=== PATIENT | female | born 1990 | race Hispanic/Latino ===

== ENCOUNTER 2017-06-10 13:16 | Inpatient (IN) | payer MEDICAID ==
[2017-06-10] MEDS ORDERED: Fluarix Quad 2017-2018(36 MOS+) IM ONE (14:39)
--- NOTE | 2017-06-10 14:40 | History and Physical Report ---
<OSIRIS ROMERO - Last Filed: 06/10/17 17:05> History of Present Illness Date of examination: 06/10/17 Date of admission: 06/10/17 13:16 History of present illness: EDC Confirmation: 06/25/2017 Gestational Age: 19 4/7 weeks Past History : 2 Parity: 1 Premature Births: 0 Mult. Births: 0 Prev : 0 Prev. attempt? 0 Aborta: 0 Elect. Ab: 0 Spont. Ab: 0 Ectopics: Term births: 1 # 1 labor: no Hours of labor: 9 Past Medical History: ADD Multiple sclerosus Seizure disorder (2013) Neurologic Disorder Past Surgical History: Tonsillectomy Family History Summary: Other family member - Has Family History of Hypertension - MS - Entered On: 02/02 Other family member - Has Family History of Hyperlipidemia - MS - Entered On: General Comments - FH: Family History Breast Cancer:MGM No Family History of Colon Cancer No Family History of Ovarvian Cancer No Family History of DVT/PE on OCP Social History: Patient is single/ engaged no etoh, no illicit drug use, no tobacco use Risk Factors: Smoked Tobacco Use: Never smoker Drug use: no Alcohol use: yes Drinks per day: social Dietary Counseling: pn yes Past Medical History Neurologic/Epilepsy/Migraines: yes 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 Abnormal PAP: positive WINSOME Exposure: negative Infertility: negative Uterine Anomaly: negative Uterine Surgery (not C/S): negative Other Gynecologic Problems: negative Social Hx: Patient is single/ engaged no etoh, no illicit drug use, no tobacco use Infection History Hx of STD: none Genetic History Congenital Heart Defect: Mom: no Dad: no Josse Disease: Mom: no Dad: no Thalassemia Mom: no Dad: no Neural Tube Defect Mom: no Dad: no Down's Syndrome Mom: no Dad: no Marcelo-Sachs Mom: no Dad: no Sickle Cell Disease/Trait Mom: no Dad: no Hemophilia Mom: no Dad: no Muscular Dystrophy Mom: no Dad: no Cystic Fibrosis Mom: no Dad: no [place] Chorea Mom: no Dad: no Mental Retardation Mom: no Dad: no Fragile X Mom: no Dad: no Other Genetic/Chromosomal Disorder Mom: no Dad: no Child w/other defect Mom: no Dad: no Enviromental Exposures Xray Exposure: no Medication, drug, or alcohol use since LMP: no Chemical/Other Exposure: no Exposure to Cat Liter: no Hx of Parvovirus (Fifth Disease): no Current Allergies (reviewed today): * SULFA (Critical) Laboratory Results Routine Urinalysis Leukocytes: negative Nitrite: negative Urobilinogen: negative Protein: negative pH: 6.0 Blood: negative Spec. [place]: 1.015 Ketone: negative Bilirubin: negative Glucose: negative Urine HCG: positive Review of Systems General Complains of fatigue and weakness. Denies fever, chills, sweats, anorexia, malaise, weight loss and sleep disorder. Complains of pelvic pain. Denies vaginal discharge, incontinence, dysuria, hematuria, urinary frequency, amenorrhea, menorrhagia, abnormal vaginal bleeding, genital sores, decreased libido, painful periods, painful sex, urinary urgency, hot flashes, vaginal dryness, vaginal itching and vaginal odor. CV Denies chest pains, palpitations, syncope, dyspnea on exertion, orthopnea, PND and peripheral edema. Resp Denies cough, dyspnea at rest, excessive sputum, hemoptysis, wheezing and pleurisy. GI Denies nausea, vomiting, diarrhea, constipation, change in bowel habits, abdominal pain, melena, hematochezia, jaundice, gas/bloating, indigestion/ heartburn, dysphagia and odynophagia. Breast Complains of breast pain. Denies left breast lump, right breast lump, nipple discharge, bloody discharge from nipple, abnormal mammogram and breast enlargement. Neuro Complains of paresthesias and difficulty walking. Psych Denies depression, anxiety, irritability and mood swings. PHYSICAL EXAM HEENT: normocephalic, no lesions or deformities Neck/Thyroid: supple, thyroid normal Skin no significant abnormal lesions or rashes Chest: respiratory effort normal, clear to auscultation Breasts: skin/areolae normal, no masses, no nipple discharge, no erythema/warmth /tenderness, and axillae normal. 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 Vulva/Vagina: No lesions, normal BUS, normal rugae Cervix: No lesions; no cervical motion tenderness Uterus: enlarged palpated at umbilicus Adnexae: Unable to palpate due to uterine size Rectovaginal: exam defered Past History Past Medical History: neurologic (MS) - Obstetrical History Expected Date of Delivery: 06/25/17 Actual Gestation: 37 Week(s) 6 Day(s) : 2 Para: 1 Hx # Term Pregnancies: 1 Number of Living Children: 1 Medications and Allergies Allergies Allergy/AdvReac Type Severity Reaction Status Date / Time Sulfa (Sulfonamide Allergy Hives Verified 06/10/17 14:40 Antibiotics) Home Medications Medication Instructions Recorded Confirmed Last Taken Type No Known Home Medications [No 06/10/17 06/10/17 Unknown History Reported Home Medications] Pnv No.118/Iron Fumarate/FA 1 each PO QDAY 06/10/17 06/10/17 1 Day Ago History [ 19 Chewable] - Vital Signs Vital signs: Vital Signs Pulse BP 80 124/92 06/10/17 13:49 06/10/17 13:49 Temp Pulse Resp BP Pulse Ox 71 124/92 100 06/10/17 14:30 06/10/17 13:49 06/10/17 14:30 - Physical Exam Breasts: Positive: deferred Cardiovascular: Regular rate, Normal S1, Normal S2 Lungs: Positive: Normal air movement Abdomen: Positive: normal appearance, soft, normal bowel sounds. Negative: distention, tenderness Genitourinary (Female): Positive: normal perenium Vulva: both: normal Vagina: Positive: normal moisture. Negative: discharge Cervix: Negative: lesion, discharge Uterus: Positive: normal size, normal contour Adnexa: both: normal Anus/Rectum: Positive: normal perianal skin, heme negative. Negative: rectal mass, hemorrhoids Extremities: Positive: normal Deep Tendon Reflex Grade: Normal +2 - Obstetrical FHR: category 1 Uterine Contraction Monitor Mode: External Cervical Dilatation: 5.5 (per CNM in office) Cervical Effacement Percentage: 70 station: -2 Uterine Contraction Pattern: Regular Uterine Tone Measurement Phase: Resting Uterine Contraction Intensity: Moderate Results Result Diagrams: 06/10/17 15:00 All other labs normal. Strep Gp B KEYSHA Negative HBsAg Screen Negative Negative *1 Rubella Antibodies, IgG 2.88 index Immune >0.99 *2 Non-immune <0.90 Equivocal 0.90 - 0.99 Immune >0.99 ABO Grouping O *3 Rh Factor Positive *4 Please note: Prior records for this patient's ABO / Rh type are not available for additional verification. Antibody Screen Negative Negative *5 RPR Non Reactive Non Reactive *6 WBC 4.7 x10E3/uL 3.4-10.8 *7 RBC 3.91 x10E6/uL 3.77-5.28 *8 Hemoglobin 12.7 g/dL 11.1-15.9 *9 Hematocrit 37.1 % 34.0-46.6 *10 MCV 95 fL 79-97 *11 MCH 32.5 pg 26.6-33.0 *12 MCHC 34.2 g/dL 31.5-35.7 *13 RDW 13.1 % 12.3-15.4 *14 Platelets 174 x10E3/uL 150-379 *15 Neutrophils 72 % *16 Lymphs 21 % *17 Monocytes 6 % *18 Eos 1 % *19 Basos 0 % *20 ! Immature Cells <No Reported Value> *21 Neutrophils (Absolute) 3.3 x10E3/uL 1.4-7.0 *22 Lymphs (Absolute) 1.0 x10E3/uL 0.7-3.1 *23 Monocytes(Absolute) 0.3 x10E3/uL 0.1-0.9 *24 Eos (Absolute) 0.0 x10E3/uL 0.0-0.4 *25 Baso (Absolute) 0.0 x10E3/uL 0.0-0.2 *26 ! Immature Granulocytes 0 % *27 ! Immature Grans (Abs) 0.0 x10E3/uL 0.0-0.1 *28 ! NRBC <No Reported Value> *29 Hematology Comments: <No Reported Value> *30 Tests: (2) Cystic Fibrosis Profile (388397) ! CF, Screen Comment: *31 RESULTS: Negative for 32 mutations analyzed Tests: (3) HB Solu + Rflx Fra (886635) Hemoglobin (Hgb) Solubility Negative Negative *33 Tests: (4) Panel 313410 ([id number]) HIV Screen 4th Generation wRfx Non Reactive Non Reactive *34 Tests: (5) HCV Ab w/Rflx to Verification (813434) ! HCV Ab <0.1 s/co ratio 0.0-0.9 *35 Tests: (6) Comment: (449443) ! Comment: SPRCS *36 Non reactive HCV antibody screen is consistent with no HCV infection, unless recent infection is suspected or other evidence exists to indicate HCV infection. Assessment and Plan 26yo @ 37w6d sent from OB office in active labor. Pt's significant hx of MS and seizure disorder. Pt has brought her RX for her steroids to be given post delivery. GBS negative. Order in EMR. aware of admission. <ASA SOLITARIO D - Last Filed: 06/10/17 19:03> History of Present Illness Date of admission: 06/10/17 13:16 Medications and Allergies Active Meds: Active Medications Fentanyl (Sublimaze) 100 mcg IV Q2H PRN PRN Reason: Labor Pain Last Admin: 06/10/17 18:01 Dose: 100 mcg Lactated Ringer's (Lactated Ringers) 1,000 mls @ 125 mls/hr IV DIRECT TERESO Last Admin: 06/10/17 17:32 Dose: 125 mls/hr Oxytocin/Sodium Chloride (Pitocin/Ns 20 Unit/1000ml Drip) 20 units in 1,000 mls @ 125 mls/hr IV DIRECT TERESO Oxytocin/Sodium Chloride (Pitocin/Ns 30 Unit/500ml) 30 units in 500 mls @ 4 mls /hr IV TITR TERESO PRN Reason: Protocol Last Admin: 06/10/17 17:33 Dose: 4 ml/hr, 4 mls/hr Immune Globulin 30 gm/ (Miscellaneous Information) 301 mls @ 0 mls/hr IV Q24HR@ 2100 TERESO Stop: 06/11/17 21:01 Mineral Oil (Mineral Oil) 30 ml PO QHS PRN PRN Reason: Constipation Ondansetron HCl (Zofran) 4 mg IV Q8H PRN PRN Reason: Nausea And Vomiting - Vital Signs Vital signs: Vital Signs Pulse BP 80 124/92 06/10/17 13:49 06/10/17 13:49 Temp Pulse Resp BP Pulse Ox 98.0 F 78 14 128/93 98 06/10/17 14:42 06/10/17 18:35 06/10/17 14:42 06/10/17 16:43 06/10/17 18:35 Results Result Diagrams: 06/10/17 15:00 Abnormal lab results 06/10/17 Range/Units 15:00 MCHC 36 H (30-34) % RDW 12.5 L (13.2-15.2) % Plt Count 120 L (140-440) K/mm3 All other labs normal.
[2017-06-10] MEDS ORDERED: ZOFRAN IV PRN ×2 (14:41→21:32)
[2017-06-10] MEDS ORDERED: XYLOCAINE 2% INFILTRATI ONE (14:41)
[2017-06-10] MEDS ORDERED: ePHEDrine SULFATE IV PRN (14:41)
[2017-06-10] MEDS ORDERED: MINERAL OIL PO PRN (14:41)
[2017-06-10] MEDS ORDERED: BRETHINE SUB-Q PRN (14:41)
[2017-06-10] MEDS ORDERED: SUBLIMAZE IV PRN (14:41)
[2017-06-10] MEDS ORDERED: PITOCin/NS 20 UNIT/1000ML DRIP 20 UNITS/1,000 ML BAG IV SCH ×2 (15:00→21:32)
[2017-06-10] MEDS ORDERED: LACTATED RINGERS 1,000 ML IV SCH (15:00)
[2017-06-10] MEDS ORDERED: PITOCin/NS 30 UNIT/500ML 30 UNITS/500 ML BAG IV SCH (15:00)
[2017-06-10 15:38] LABS: Hematocrit 37.4 % (30.3-42.9); Hemoglobin 13.4 gm/dl (10.1-14.3); Mean Corpuscular HGB Conc 36 % (30-34); Mean Corpuscular Hemoglobin 32 pg (28-32); Mean Corpuscular Volume 90 fl (79-97); Platelet Count 120 K/mm3 (140-440); Red Blood Count 4.15 M/mm3 (3.65-5.03); Red Cell Distribution Width 12.5 % (13.2-15.2); White Blood Count 8.2 K/mm3 (4.5-11.0)
--- NOTE | 2017-06-10 19:28 | Procedure Note ---
OB Delivery Note - Delivery Date of Delivery: 06/10/17 Surgeon: ASA SOLITARIO Estimated blood loss: 200cc - Vaginal Delivery presentation: vertex Delivery position: OA Intrapartum events: none Delivery augmentation: rupture of membranes, pitocin Delivery monitor: external FHT, external uterine Route of delivery: Delivery placenta: spontaneous Episiotomy: none Delivery laceration: none Anesthesia: intravenous - Infant A at 1 minute: 9 at 5 minutes: 9 Infant Gender: Male
[2017-06-10] MEDS ORDERED: TYLENOL PO SCH (21:00)
[2017-06-10] MEDS ORDERED: VIAFLEX EMPTY CONTAINER IV SCH (21:00)
[2017-06-10] MEDS ORDERED: PRIVIGEN IV SCH (21:00)
[2017-06-10] MEDS ORDERED: PHENERGAN PR PRN (21:32)
[2017-06-10] MEDS ORDERED: CYTOTEC PR PRN (21:32)
[2017-06-10] MEDS ORDERED: TORADOL IV PRN (21:32)
[2017-06-10] MEDS ORDERED: TUCKS PAD TP PRN (21:32)
[2017-06-10] MEDS ORDERED: METHERGINE IM PRN (21:32)
[2017-06-10] MEDS ORDERED: MILK OF MAGNESIA PO PRN (21:32)
[2017-06-10] MEDS ORDERED: SODIUM CHLORIDE FLUSH SYRINGE 10 ML IV PRN (21:32)
[2017-06-10] MEDS ORDERED: BENADRYL PO PRN (21:32)
[2017-06-10] MEDS ORDERED: LANSINOH TP PRN (21:32)
[2017-06-10] MEDS ORDERED: HEMABATE IM PRN (21:32)
[2017-06-10] MEDS ORDERED: PHENERGAN PO PRN (21:32)
[2017-06-10] MEDS ORDERED: TYLENOL PO PRN (21:32)
[2017-06-10] MEDS ORDERED: DULCOLAX PR PRN (21:32)
[2017-06-10] MEDS: TYLENOL PO SCH (22:05)
[2017-06-10] MEDS: MOTRIN PO SCH (22:06)
[2017-06-10] MEDS: BENADRYL PO SCH (22:06)
[2017-06-10] MEDS: PRIVIGEN IV SCH (22:47)
[2017-06-10] MEDS: VIAFLEX EMPTY CONTAINER IV SCH (22:47)
[2017-06-11] MEDS: MOTRIN PO SCH ×3 (05:11→17:55)
--- NOTE | 2017-06-11 09:21 | Progress Note ---
Assessment and Plan patient doing well, no complaints this morning. VSSAF, H&H not yet resulted. patient denies s/s anemia during ambulation. Second dose of privigen due this evening. Plan to continue current pathway and d/c home tomorrow. - Patient Problems (1) (normal spontaneous vaginal delivery) Current Visit: Yes Status: Acute (2) Multiple sclerosis Current Visit: Yes Status: Acute (3) Seizure disorder Current Visit: Yes Status: Acute Subjective - Subjective Date of service: 06/11/17 Principal diagnosis: day #1 s/p , MS Patient reports: appetite normal, voiding normally, pain well controlled, ambulating normally, no dizzy ambulation, no nauseated : doing well, bottle feeding Objective - Vital Signs Latest vital signs: Vital Signs Temp Pulse Resp BP BP Pulse Ox 06/11/17 04:30 98.2 F 67 20 123/78 06/10/17 21:15 97.6 F 78 20 119/85 06/10/17 20:09 60 98 06/10/17 20:08 62 129/75 06/10/17 20:03 97 06/10/17 19:53 141 H 130/75 06/10/17 19:38 65 137/80 06/10/17 19:35 98.4 F 20 06/10/17 18:40 94 H 97 06/10/17 18:38 107 H 92 06/10/17 18:35 78 98 06/10/17 18:30 78 98 06/10/17 18:25 73 98 06/10/17 18:20 75 97 06/10/17 18:15 83 96 06/10/17 18:10 85 97 06/10/17 18:05 84 96 06/10/17 18:00 74 99 06/10/17 17:55 75 99 06/10/17 17:50 80 99 06/10/17 17:45 79 99 06/10/17 17:40 75 100 06/10/17 17:35 83 99 06/10/17 17:30 83 99 06/10/17 17:25 85 99 06/10/17 17:20 90 98 06/10/17 17:15 85 100 06/10/17 17:10 77 100 06/10/17 17:05 82 99 06/10/17 17:00 84 100 06/10/17 16:55 78 99 06/10/17 16:50 81 99 06/10/17 16:45 72 99 06/10/17 16:43 86 128/93 06/10/17 16:40 84 98 06/10/17 16:35 80 99 06/10/17 16:30 76 99 06/10/17 16:25 73 99 06/10/17 16:20 66 100 06/10/17 16:15 86 99 06/10/17 16:10 75 99 06/10/17 16:05 82 99 06/10/17 16:00 67 99 06/10/17 15:55 90 100 06/10/17 15:50 73 99 06/10/17 15:45 80 99 06/10/17 15:40 71 100 06/10/17 15:35 70 100 06/10/17 15:30 73 99 06/10/17 15:25 74 99 06/10/17 15:20 71 99 06/10/17 15:15 73 100 06/10/17 15:10 56 L 100 06/10/17 15:05 68 99 06/10/17 15:00 76 99 06/10/17 14:55 72 100 06/10/17 14:50 66 100 06/10/17 14:45 70 100 06/10/17 14:42 98.0 F 73 14 124/92 100 06/10/17 14:40 67 99 06/10/17 14:35 71 100 06/10/17 14:30 71 100 06/10/17 14:25 73 100 06/10/17 14:20 77 100 06/10/17 14:15 75 100 06/10/17 14:10 79 100 06/10/17 14:05 90 99 06/10/17 14:00 78 99 06/10/17 13:55 81 99 06/10/17 13:50 78 99 06/10/17 13:49 80 124/92 Intake and Output 06/10/17 06/11/17 06/11/17 23:59 07:59 15:59 Other: # Voids Void 1 Estimated Blood Loss 200 - Exam Breasts: Present: normal Cardiovascular: Present: Regular rate Lungs: Present: Clear to auscultation, Normal air movement Abdomen: Present: normal appearance, soft, normal bowel sounds Vulva: both: normal (edema, no lacerations) Uterus: Present: normal, firm, fundal height at umbilicus Extremities: Present: normal Deep Tendon Reflex Grade: Normal +2 - Labs Labs: Abnormal lab results 06/10/17 Range/Units 15:00 MCHC 36 H (30-34) % RDW 12.5 L (13.2-15.2) % Plt Count 120 L (140-440) K/mm3
[2017-06-11 11:19] LABS: Hematocrit 34.1 % (30.3-42.9); Hemoglobin 11.8 gm/dl (10.1-14.3)
[2017-06-11] MEDS: TYLENOL PO SCH (20:34)
[2017-06-11] MEDS: BENADRYL PO SCH (20:35)
[2017-06-11] MEDS: VIAFLEX EMPTY CONTAINER IV SCH (21:09)
[2017-06-11] MEDS: PRIVIGEN IV SCH (21:09)
[2017-06-12] MEDS: MOTRIN PO SCH ×2 (00:01→05:24)
[2017-06-12] MEDS ORDERED: BOOSTRIX IM ONE (06:00)
[2017-06-12 09:00] VITALS: BP 132/89
--- NOTE | 2017-06-12 11:55 | Discharge Summary ---
Providers - Providers Date of Admission: 06/10/17 13:16 Date of discharge: 06/12/17 Attending physician: ASA SOLITARIO Primary care physician: ASA SOLITARIO Hospitalization Condition: Good Procedures: Hospital course: unremarkable Disposition: DC-01 TO HOME OR SELFCARE - Discharge Diagnoses (1) Single live Status: Acute (2) (normal spontaneous vaginal delivery) Status: Acute (3) Multiple sclerosis Status: Chronic Core Measure Documentation - Palliative Care Palliative Care/ Comfort Measures: Not Applicable - Core Measures Any of the following diagnoses?: none Exam - Physical Exam Narrative exam: Sitting on couch, fully dressed, minimal spotting, no complaints - Constitutional Vitals: Temp Pulse Resp BP Pulse Ox 97.6 F 71 18 132/89 97 06/12/17 07:40 06/12/17 00:29 06/12/17 07:40 06/12/17 07:40 06/12/17 00:29 General appearance: Present: no acute distress - Respiratory Respiratory effort: normal Plan Activity: other (No sex) Weight Bearing Status: Weight Bear as Tolerated Diet: regular Follow up with: ASA SOLITARIO MD [Primary Care Provider] - (3 weeks PP visit) MANDY SU MD [Staff Physician] - 06/15/17 3:15 pm (circumcision) Prescriptions: Lidocain2.5%/Prilocai2.5% [Emla] 5 gm TP ONCE #1 tube
[2017-06-12] MEDS ORDERED: Fluarix Quad 2017-2018(36 MOS+) IM ONE (15:07)
== END 2017-06-12 13:00 | disposition home or self-care (01) | DRG 775 ==
LOC: LD 13:16 → OB 20:54
PROVIDERS: ADMIT Obstetrics & Gynecology; ATTEND Obstetrics & Gynecology
PROC: 10E0XZZ Delivery of Products of Conception, External Approach (ICD-10-PCS; principal; 2017-06-10)
PROC: 3E0234Z Introduction of Serum, Toxoid and Vaccine into Muscle, Percutaneous Approach (ICD-10-PCS; 2017-06-12)
DX: O99.354 Diseases of the nervous system complicating childbirth (principal); Z3A.37 37 weeks gestation of pregnancy; Z37.0 Single live birth; Z90.89 Acquired absence of other organs; Z82.49 Family history of ischemic heart disease and other diseases of the circulatory system; G40.909 Epilepsy, unspecified, not intractable, without status epilepticus; Z88.1 Allergy status to other antibiotic agents; G35 Multiple sclerosis; F98.8 Other specified behavioral and emotional disorders with onset usually occurring in childhood and adolescence; Z23 Encounter for immunization
CPT/HCPCS: 36415; 85014; 85018; 85027; 86592; 86850; 86900; 86901; 90471; 90686; 90715; 99211; G0008; G0463; J1459; J2590; J3010; J7120

== ENCOUNTER 2017-07-27 07:43 | Day surgery (SDC) | payer MEDICAID ==
--- NOTE | 2017-07-26 17:46 | History and Physical Report ---
History of Present Illness Date of examination: 07/23/17 Chief complaint: Sterilization History of present illness: Past History : 3 Term Births: 2 Premature Births: 0 Living Children: 2 Para: 2 Mult. Births: 0 Prev : 0 Prev. attempt? 0 Aborta: 1 Elect. Ab: 1 Spont. 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 of genital herpes: no Partner hx. of genital herpes: no Hx of STD: none Active Medications (reviewed today): IBUPROFEN 600 MG ORAL TABLET (IBUPROFEN) 1 po q6hrs as directed prn OXYCODONE-ACETAMINOPHEN 5-325 MG ORAL TABLET (OXYCODONE-ACETAMINOPHEN) 1-2po q6h prn Current Allergies (reviewed today): SULFA (Critical) Past Medical History: Reviewed history from 02/02/2017 and no changes required: ADD Multiple sclerosis Seizure disorder (2013) Neurologic Disorder Past Surgical History: Reviewed history from 02/02/2017 and no changes required: Tonsillectomy Family History Summary: Reviewed history Last on 12/24/2011 and no changes required:07/26/2017 Other family member - Has Family History of Hypertension - MS - Entered On: 02/02 Other family member - Has Family History of Hyperlipidemia - MS - Entered On: Aunt - Has Family History of Ovarian Cancer - paternal - Entered On: 07/12/2017 MGM - Has Family History Breast Cancer - Entered On: 07/26/2017 Other family member - Has No Family History of Biliary Tract Cancer - Entered On : 07/26/2017 Other family member - Has No Family History of Brain Cancer - Entered On: 2016 Other family member - Has No Family History of Colon Cancer - Entered On: 2016 Other family member - Has No Family History of DVT/PE on OCP - Entered On: 07/26 Other family member - Has No Family History of Kidney/Urinary Tract Cancer - Entered On: 07/26/2017 Other family member - Has No Family History of Pancreatic Cancer - Entered On: 07/26/2017 Other family member - Has No Family History of Stomach Cancer - Entered On: 06/2017 Other family member - Has No Family History of Small Bowel Cancer - Entered On: 07/26/2017 Other family member - Has No Family History of Uterine Cancer - Entered On: 06/2017 General Comments - FH: Family History Breast Cancer:MGM No Family History of Colon Cancer No Family History of DVT/PE on OCP Social History: Reviewed history from 02/02/2017 and no changes required: Patient is single/ engaged no etoh, no illicit drug use, no tobacco use Risk Factors: Smoked Tobacco Use: Never smoker Smokeless Tobacco Use: Never Passive smoke exposure: no Drug use: no HIV high-risk behavior: no Alcohol use: no Exercise: no Seatbelt use: 100 % PAP Smear History: Date of Last PAP Smear: 07/23/2017 Results: 01/2017 Previous Tobacco Use: Signed On - 02/02/2017 Smoked Tobacco Use: Never smoker Counseled to quit/cut down: yes Drug use: no HIV high-risk behavior: low risk Previous Alcohol Use: Signed On - 02/02/2017 Alcohol use: yes Type: occ Drinks per day: social Exercise: yes Times per week: 1 Type of Exercise: walk Dietary Counseling: pn yes PAP Smear History: Date of Last PAP Smear: 07/23/2017 Results: 01/2017 Review of Systems General Denies fever, chills, sweats, anorexia, fatigue, weakness, malaise, weight loss and sleep disorder. Denies vaginal discharge, incontinence, dysuria, hematuria, urinary frequency, amenorrhea, menorrhagia, abnormal vaginal bleeding, pelvic pain, genital sores, decreased libido, painful periods, painful sex, urinary urgency, hot flashes, vaginal dryness, vaginal itching and vaginal odor. CV Denies chest pains, palpitations, syncope, dyspnea on exertion, orthopnea, PND and peripheral edema. Resp Denies cough, dyspnea at rest, excessive sputum, hemoptysis, wheezing and pleurisy. GI Denies nausea, vomiting, diarrhea, constipation, change in bowel habits, abdominal pain, melena, hematochezia, jaundice, gas/bloating, indigestion/ heartburn, dysphagia and odynophagia. Endo Denies cold intolerance, heat intolerance, polydipsia, polyphagia, polyuria and unusual weight change. Breast Denies left breast lump, right breast lump, nipple discharge, bloody discharge from nipple, breast pain, abnormal mammogram and breast enlargement. MS Denies back pain, joint pain, joint swelling, muscle cramps, muscle weakness, stiffness, arthritis, sciatica, restless legs, leg pain at night and leg pain with exertion. Derm Denies rash, itching, dryness and suspicious lesions. Neuro Denies paralysis, paresthesias, headache, seizures, tremors, vertigo, transient blindness, frequent falls, frequent headaches and difficulty walking. Psych Denies depression, anxiety, irritability and mood swings. Eyes Denies blurring, diplopia, irritation, discharge, vision loss, eye pain and photophobia. ENT Denies earache, ear discharge, tinnitus, decreased hearing, nasal congestion, nosebleeds, sore throat and hoarseness. Allergy Denies urticaria, allergic rash, hay fever and recurrent infections. Heme Denies abnormal bruising, bleeding and enlarged lymph nodes. Physical Exam Appearance: well developed, well nourished, no acute distress Other Exams Lungs: no rales, rhonchi, or wheezes Heart: S1, S2, no murmur, rub, or gallop Impression & Recommendations: Problem # 1: Sterilization (ICD-V25.2) (CKZ84-Z97.2) Risks of regret emphasized. Permanent and irreversible condition explained to patient. Pt verbalized understanding. Consent reviewed and signed. Pre- operative instructions sheets given. The risks and alternatives to this surgery were reviewed with the patient. Infection precautions reviewed, pt to call for any signs or symptoms of infection. Patient given ample opportunity to have all her questions answered before signing informed consent. Patient informed of possible bleeding. 1%failure rate emphasized. She desires to proceed with bilateral salpingectomy for sterilizzation. Consent reviewed and signed . Possible laparoscopy or laparotomy explained to patient. The risks and alternatives for this surgery were reviewed with the patient. She was informed of possible bleeding, infection, injury to bowel, bladder, ureters or other adjacent organs. The patient was instructed/informed the following: The normal length of hospital stay for this procedure. Nothing to eat or drink after midnight the evening prior to surgery. Clear liquids the day before surgery. Fleets enema the day prior to surgery. Pre-op instruction sheets given. Wound care instructions given. Infection precautions reviewed, patient to call for any signs or symptoms of infection. The usual discomforts associated with this procedure were detailed. Proper use of pain medicines was reviewed. Patient was given ample opportunity to have all her questions answered before signing informed consent. Medications Added to Medication List This Visit: 1) Ibuprofen 600 Mg Oral Tablet (Ibuprofen) .... 1 po q6hrs as directed prn 2) Oxycodone-acetaminophen 5-325 Mg Oral Tablet (Oxycodone-acetaminophen) .... 1-2po q6h prn Prescriptions: IBUPROFEN 600 MG ORAL TABLET (IBUPROFEN) 1 po q6hrs as directed prn #30 x 1 Entered and Authorized by: Mavis Riely MD Method used: Print then Give to Patient RxID: [id number] OXYCODONE-ACETAMINOPHEN 5-325 MG ORAL TABLET (OXYCODONE-ACETAMINOPHEN) 1-2po q6h prn #10 x 0 Entered and Authorized by: Mavis Riley MD Method used: Print then Give to Patient RxID: [id number] Medications and Allergies Allergies Allergy/AdvReac Type Severity Reaction Status Date / Time Sulfa (Sulfonamide Allergy Hives Verified 07/21/17 17:22 Antibiotics) Home Medications Medication Instructions Recorded Confirmed Last Taken Type No Known Home Medications [No 07/21/17 07/21/17 Unknown History Reported Home Medications] Assessment and Plan - Patient Problems (1) Sterilization Status: Acute
--- NOTE | 2017-07-27 08:44 | Anesthesia Day of Surgery ---
Anesthesia Day of Surgery - Day of Surgery Patient Examined: Yes Patient H&P Reviewed: Yes Patient is NPO: Yes
--- NOTE | 2017-07-27 08:44 | Anesthesia Consultation ---
Anesthesia Consult and Med Hx Date of service: 07/27/17 - Airway Anesthetic Teeth Evaluation: Good ROM Head & Neck: Adequate Mental/Hyoid Distance: Adequate Mallampati Class: Class I Intubation Access Assessment: Good - Pulmonary Exam CTA: Yes - Cardiac Exam Cardiac Exam: RRR - Pre-Operative Health Status ASA Pre-Surgery Classification: ASA2 Proposed Anesthetic Plan: General - Pulmonary Hx Asthma: No COPD: No Hx Pneumonia: No - Cardiovascular System Hx Hypertension: No - Central Nervous System Hx Seizures: Yes Hx Psychiatric Problems: No - Endocrine Hx Renal Disease: No Hx End Stage Renal Disease: No Hx Hypothyroidism: No Hx Hyperthyroidism: Yes ("slightly") - Hematic Hx Anemia: No Hx Sickle Cell Disease: No - Other Systems Hx Alcohol Use: No Hx Cancer: No - Additional Comments Anesthesia Medical History Comments: Ptn has multiple sclerosis. Mostly on the left side and has a leg brace. Cant walk without it.
[2017-07-27] MEDS ORDERED: PEPCID IV NR (09:00)
[2017-07-27] MEDS ORDERED: VERSED IV NR (09:00)
[2017-07-27] MEDS ORDERED: NACL 0.9% 1000 ML 1,000 ML IV SCH (09:00)
[2017-07-27] MEDS ORDERED: MARCAINE 0.5% 30 ML INFILTRATI ONE (11:59)
[2017-07-27] MEDS ORDERED: METHYLENE BLUE ONE (12:00)
[2017-07-27] MEDS ORDERED: DIPRIVAN 10 MG/ML IV ONE (12:16)
[2017-07-27] MEDS ORDERED: ZEMURON IV ONE (12:18)
[2017-07-27] MEDS ORDERED: XYLOCAINE MPF 2% ONE (12:18)
[2017-07-27] MEDS ORDERED: DILAUDID ONE (12:19)
[2017-07-27] MEDS ORDERED: MORPHINE IV PRN (12:23)
[2017-07-27] MEDS ORDERED: ZOFRAN IV PRN (12:23)
[2017-07-27] MEDS ORDERED: ZOFRAN ONE (12:47)
[2017-07-27] MEDS ORDERED: DECADRON ONE (12:48)
[2017-07-27] MEDS ORDERED: TORADOL ONE (12:48)
[2017-07-27] MEDS ORDERED: NEOSTIGMINE ONE (12:51)
[2017-07-27] MEDS ORDERED: NACL 0.9% 1000 ML 1,000 ML ONE (13:09)
--- NOTE | 2017-07-27 13:38 | Discharge Summary ---
Providers - Providers Date of discharge: 07/27/17 Attending physician: ASA SOLITARIO Primary care physician: ASA SOLITARIO Hospitalization Disposition: DC-01 TO HOME OR SELFCARE - Discharge Diagnoses (1) Sterilization Status: Acute Core Measure Documentation - Palliative Care Palliative Care/ Comfort Measures: Not Applicable - Core Measures Any of the following diagnoses?: none Exam - Constitutional Vitals: Temp Pulse Resp BP Pulse Ox 97.4 F L 62 16 114/76 100 07/27/17 08:40 07/27/17 08:40 07/27/17 08:40 07/27/17 08:40 07/27/17 08:40 - Neck Neck: Present: supple - Respiratory Respiratory effort: normal - Cardiovascular Rhythm: regular - Extremities Extremities: no ischemia, No edema - Abdominal General gastrointestinal: Present: non-distended Female genitourinary: Present: normal - Integumentary Integumentary: Present: clear, warm, dry Plan Activity: other (no sex x1week) Weight Bearing Status: Weight Bear as Tolerated Diet: regular Wound: open to air, keep clean and dry Special Instructions: no heavy lifting (>25#) Follow up with: ASA SOLITARIO MD [Primary Care Provider] - 7 Days
--- NOTE | 2017-07-27 13:55 | Operative Report ---
Operative Report Operative Report: Date: 07/27/2017 Preoperative diagnosis: Desire sterilization Postoperative diagnosis: Desire sterilization Procedure: Laparoscopic bilateral salpingectomy for sterilization Surgeon: Mavis Riley MD Strap Cutter: [] Anesthesiologist: Dr. Allan Anesthesia: General anesthesia EBL: Minimal Findings: Small fibroids one noted on the left posterior fundus yet on the anterior right area. Grossly normal tubes and ovaries Procedure: After risks, benefits, consequences, alternatives and complications were discussed patient voiced her understanding and desire to proceed, she was taken to the OR and placed in the supine position. After general anesthesia was induced, she was placed in the dorsal lithotomy position. Exam under anesthesia was unremarkable. She is now draped in usual sterile fashion. After a timeout was performed, a Holly catheter was introduced into the bladder with drainage of clear yellow urine. A operative speculum was introduced into the vagina, and anterior lip cervix was grasped with a single-toothed tenaculum. The uterus was sounded to 9 cm. The cervix was progressively dilated to allow the [employer] uterine manipulator. The tenaculum and speculum were removed. Sterile gloves were placed and attention was turned to the abdomen. An infraumbilical incision was made and a 5 mm Optiview trocar with scope and camera attached were placed through the incision. The abdomen was entered under direct visualization. The abdomen was then insufflated. No bowel, bladder, ureteral, or major vessel injury was noted. She was then placed in steep Trendelenburg position. The above findings were noted. An additional 5 mm trocar was placed through a suprapubic midline incision made approximately 2 cm superior to the symphysis pubis. A 5 mm trocar was introduced under direct visualization. No bowel bladder or ureteral or major vascular injury was noted. The uterus was elevated, using the 5 mm [place] LigaSure device bilateral salpingectomy was performed. Each tube was removed through the suprapubic trocar. Attention was turned to the adnexa where hemostasis was noted. Again no bowel, bladder or ureteral or major vascular injury was noted. The gas was released from the abdomen under direct visualization. All areas appeared to be hemostatic again no obvious evidence of bowel, bladder, ureteral or vascular injury. At this point the procedure was ended. The remaining air in the abdomen was released. Patient was taken out of Trendelenburg position. The incisions were reapproximated using 4-0 Vicryl in a subcuticular manner. The incisions were then infused with half percent Marcaine without epinephrine. Then attention was turned to the vagina where the uterine manipulator was removed. No bleeding was noted from the vagina. The Holly catheter was then removed, clear yellow urine was noted to drain into the Holly tubing as well as into the bag. Counts were correct 3 patient tolerated procedure well was taken to recovery in stable condition.
[2017-07-27 14:14] VITALS: BP 134/70
== END 2017-07-27 07:44 | disposition home or self-care (01) ==
LOC: OR 07:43
PROVIDERS: ATTEND Obstetrics & Gynecology
DX: Z30.2 Encounter for sterilization (principal); G35 Multiple sclerosis; G40.909 Epilepsy, unspecified, not intractable, without status epilepticus; F98.8 Other specified behavioral and emotional disorders with onset usually occurring in childhood and adolescence; Z98.890 Other specified postprocedural states
CPT/HCPCS: 36415; 58661; 84703; 86850; 86900; 86901; 88302; J1100; J1170; J1885; J2250; J2405; J2704; J2710; J7030; Q9968